=== PATIENT | male | born 1955 | race Caucasian/White ===

== ENCOUNTER 2020-08-02 16:44 | Inpatient (IN) | payer OTHER ==
[~2020-08-02] VITALS: Ht 149.9 cm; Wt 109.8 kg
[~2020-08-02 16:44] MED LIST: AMIODARONE 150 MG/3 ML VIAL ONE; AMLO-187 PO; ATOR20TA58 PO; ATROPINE 0.5 MG/5 ML DISP.SYRINGE. ONE; DEXTROSE 50% 25 GM / 50ML DISP.SYRIN. IV ONE; DOPamine 400MG/250ML PREMIX 400 MG/250 ML BAG IV ONE; EPINEPHrine SYRINGE 1 MG/10 ML SYRINGE ONE; METF100010 PO; OLME40TA12 PO; SODIUM BICARB ADULT 8.4% 50 MEQ/50 ML DISP.SYRIN. ONE
[2020-08-02 18:00] VITALS: BP 110/70
[2020-08-02] MEDS ORDERED: MINERAL OIL/PETROLATUM,WHITE OPHTH OINT 3.5GM TUBE. OU PRN (19:30)
[2020-08-02] MEDS ORDERED: AMIODARONE 450 MG in IV DEXTROSE 5% 250 ML IV ONE (19:30)
[2020-08-02] MEDS ORDERED: methylPREDNISolone SOD SUCC PF 125 MG/2 ML VIAL. IV ONE (19:30)
[2020-08-02] MEDS ORDERED: NALOXONE 0.4 MG/ML VIAL. IV PRN (19:30)
[2020-08-02] MEDS ORDERED: IV 1/2 NORMAL SALINE 1,000 ML IV SCH (19:30)
[2020-08-02] MEDS ORDERED: VECURONIUM BOLUS 10 MG VIAL. IV ONE (19:30)
--- NOTE | 2020-08-02 21:03 | RAD ---
Exam: Chest one view INDICATION: Shortness of breath TECHNIQUE: Frontal view of the chest Comparisons: 08/02/2020 FINDINGS: Enteric tube traverses below the diaphragm distal extent not visualized likely within stomach. The cardiomediastinal silhouette and pulmonary vessels are within normal limits. Hazy opacity lung bases bilaterally. No pleural effusion. IMPRESSION: 1. Enteric tube likely within the stomach. 2. Small bilateral pleural effusions. Electronically signed by: Emelina Anton MD (08/02/2020 9:00 PM) [facility]
[2020-08-02 21:06] LABS: BASO % 0 % (0-3); EOS % 0 % (0-3); HEMATOCRIT 41.5 % (39.0-53.0); HEMOGLOBIN 14.1 g/dL (13.0-17.5); LYMPH # 1.5 x10^3/uL (1.0-4.8); LYMPH % 3 % (24-48); MEAN CORPUSCULAR HEMOGLOBIN 29 pg (25-35); MEAN CORPUSCULAR HGB CONC 34 g/dL (31-37); MEAN CORPUSCULAR VOLUME 84 fL (79-100); MONO # 2.6 x10^3/uL (0.0-1.1); MONO % 6 % (0-9); NEUT # 42.7 x10^3/uL (1.8-7.7); NEUT % 91 % (31-73); PLATELET COUNT 102 x10^3/uL (140-400); RED BLOOD COUNT 4.94 x10^6/uL (4.30-5.70); RED CELL DISTRIBUTION WIDTH 14.1 % (11.5-14.5)
[2020-08-02 21:09] LABS: BASE EXCESS ABG -13 mmol/L (-3-3); HCO3 ABG 12 mmol/L (21-28); PCO2 ABG 29 mmHg (35-46); PO2 ABG 153 mmHg (65-108); SAT O2 ABG 99 % (92-99)
[2020-08-02 21:10] LABS: WHITE BLOOD COUNT 46.9 x10^3/uL (4.0-11.0)
[2020-08-02 21:29] LABS: ALBUMIN 2.2 g/dL (3.4-5.0); CREATININE 5.2 mg/dL (0.7-1.3); DIRECT BILIRUBIN 0.3 mg/dL (0.0-0.2); GFR 11.2; MAGNESIUM 1.9 mg/dL (1.8-2.4); PHOSPHORUS 6.9 mg/dL (2.6-4.7); POTASSIUM 5.7 mmol/L (3.5-5.1); TOTAL BILIRUBIN 0.7 mg/dL (0.2-1.0); TOTAL PROTEIN 5.2 g/dL (6.4-8.2)
[2020-08-02] MEDS ORDERED: LEVOTHYROXINE SODIUM INJ 100 MCG in NORMAL SALINE 5 ML IV SCH (21:30)
[2020-08-02 21:36] LABS: PROTHROMBIN TIME PATIENT 17.5 SEC (11.7-14.0)
[2020-08-02 21:44] LABS: FIO2 ABG 100
--- NOTE | 2020-08-02 21:45 | RAD ---
Examination: NM BRAIN SCAN WITH FLOW History: Confirmation of brain ; organ donor; cardiac arrest Comparison/Correlation: None Findings: 16.5 mCi technetium 99m sodium pertechnetate was intravenously administered for purposes of brain flow scintigraphy exam. Imaging was performed up to 110 seconds. There is no intracranial flow of radiotracer identified. Impression: Lack of intracranial flow of radiotracer compatible with brain in the appropriate clinical sett ing. Electronically signed by: Jose Alberto Hebert MD (08/02/2020 9:42 PM) [facility]
[2020-08-02] MEDS: NOREPINEPHRINE VIAL 8 MG in IV DEXTROSE 5% 250 ML IV PRN (21:51)
[2020-08-02] MEDS: VASOPRESSIN 20 UNIT in IV DEXTROSE 5% 100ML 100 ML IV PRN (21:54)
[2020-08-02] MEDS ORDERED: INSULIN REGULAR VIAL 100 UNIT in IV NORMAL SALINE 100ML 100 ML IV PRN (23:15)
[2020-08-02] MEDS ORDERED: SODIUM BICARB ADULT 8.4% 50 MEQ/50 ML DISP.SYRIN. ONE (23:24)
[2020-08-02] MEDS ORDERED: CALCIUM CHLORIDE 1,000 MG in IV NORMAL SALINE 100ML 100 ML IV ONE (23:30)
[2020-08-02] MEDS ORDERED: EPINEPHrine SYRINGE 1 MG/10 ML SYRINGE ONE ×2 (23:35→23:40)
[2020-08-03] MEDS: PHENYLEPHRINE INJ 50 MG in IV NORMAL SALINE 250ML 250 ML IV PRN ×3 (00:10→11:18)
[2020-08-03] MEDS ORDERED: EPINEPHrine SYRINGE 1 MG/10 ML SYRINGE ONE (00:34)
[2020-08-03] MEDS ORDERED: EPINEPHrine SYRINGE 1 MG/10 ML SYRINGE IV ONE (02:00)
[2020-08-03] MEDS ORDERED: SODIUM BICARB ADULT 8.4% 50 MEQ/50 ML DISP.SYRIN. IV ONE ×2 (02:00)
[2020-08-03] MEDS ORDERED: EPINEPHrine VIAL 5 MG in IV NORMAL SALINE 250ML 250 ML IV PRN (02:15)
[2020-08-03 02:21] LABS: BILIRUBIN,URINE SMALL (NEG); CLARITY,URINE TURBID; COLOR,URINE AMBER; NITRITE,URINE NEGATIVE (NEG); PROTEIN,URINE >=300 mg/dL (NEG-TRACE); UROBILINOGEN,URINE 0.2 mg/dL (0.2 mg/dL)
[2020-08-03 02:30] LABS: BACTERIA,URINE 0 /HPF (0-FEW)
[2020-08-03 02:31] LABS: AMORPHOUS SEDIMENT,UR PRESENT /HPF
[2020-08-03 02:32] LABS: GRANULAR CASTS,URINE FEW /HPF; HYALINE CASTS, URINE OCCASIONAL /HPF; WAXY CASTS,URINE OCCASIONAL /HPF
[2020-08-03] MEDS: NOREPINEPHRINE VIAL 8 MG in IV DEXTROSE 5% 250 ML IV PRN ×2 (02:43→08:24)
[2020-08-03 02:52] LABS: BASE EXCESS ABG 19 mmol/L (-3-3); HCO3 ABG 9 mmol/L (21-28); PCO2 ABG 31 mmHg (35-46); PO2 ABG 102 mmHg (65-108); SAT O2 ABG 96 % (92-99)
[2020-08-03 02:53] LABS: FIO2 ABG 100 (VENT)
[2020-08-03 02:54] LABS: CORRECTED PCO2 ABG 30 mmHg; CORRECTED PH ABG 7.11; CORRECTED PO2 ABG 98 mmHg
[2020-08-03 03:13] LABS: BASE EXCESS ABG -16 mmol/L (-3-3); CORRECTED PCO2 ABG 34 mmHg; CORRECTED PH ABG 7.15; CORRECTED PO2 ABG 105 mmHg; HCO3 ABG 12 mmol/L (21-28); SAT O2 ABG 97 % (92-99)
[2020-08-03 03:27] LABS: BASO # 0.1 x10^3/uL (0.0-0.2); BASO % 0 % (0-3); EOS % 0 % (0-3); HEMATOCRIT 38.5 % (39.0-53.0); HEMOGLOBIN 13.1 g/dL (13.0-17.5); LYMPH # 1.1 x10^3/uL (1.0-4.8); LYMPH % 3 % (24-48); MEAN CORPUSCULAR HEMOGLOBIN 29 pg (25-35); MEAN CORPUSCULAR HGB CONC 34 g/dL (31-37); MEAN CORPUSCULAR VOLUME 85 fL (79-100); MONO # 1.7 x10^3/uL (0.0-1.1); MONO % 4 % (0-9); NEUT # 37.4 x10^3/uL (1.8-7.7); NEUT % 93 % (31-73); PLATELET COUNT 108 x10^3/uL (140-400); RED BLOOD COUNT 4.51 x10^6/uL (4.30-5.70); RED CELL DISTRIBUTION WIDTH 13.7 % (11.5-14.5)
[2020-08-03 03:34] LABS: PROTHROMBIN TIME PATIENT 18.6 SEC (11.7-14.0); WHITE BLOOD COUNT 40.3 x10^3/uL (4.0-11.0)
[2020-08-03 03:42] LABS: FIO2 ABG 100 VENT
[2020-08-03 03:44] LABS: ALBUMIN 2.1 g/dL (3.4-5.0); CREATININE 6.1 mg/dL (0.7-1.3); DIRECT BILIRUBIN 0.3 mg/dL (0.0-0.2); GFR 9.3; MAGNESIUM 1.8 mg/dL (1.8-2.4); PHOSPHORUS 8.9 mg/dL (2.6-4.7); POTASSIUM 5.8 mmol/L (3.5-5.1); TOTAL BILIRUBIN 0.7 mg/dL (0.2-1.0); TOTAL PROTEIN 4.5 g/dL (6.4-8.2)
[2020-08-03] MEDS: PIPERACILLIN/TAZOBACTAM 3.375 GM in IV NORMAL SALINE 50ML 50 ML IV SCH ×2 (03:45→11:44)
[2020-08-03] MEDS: POTASSIUM CHLORIDE 20 MEQ in DIALYSIS SOLUTION BGK 0/2.5 5,000 ML IV SCH ×5 (03:51→08:22)
[2020-08-03] MEDS ORDERED: CALCIUM CHLORIDE 1,000 MG in IV NORMAL SALINE 100ML 100 ML IV ONE (05:30)
[2020-08-03 05:45] LABS: BASE EXCESS ABG -14 mmol/L (-3-3); CORRECTED PCO2 ABG 33 mmHg; CORRECTED PO2 ABG 104 mmHg; HCO3 ABG 13 mmol/L (21-28); PCO2 ABG 34 mmHg (35-46); PO2 ABG 107 mmHg (65-108); SAT O2 ABG 97 % (92-99)
[2020-08-03 06:31] LABS: ALBUMIN 2.1 g/dL (3.4-5.0); CALCIUM 7.9 mg/dL (8.5-10.1); CREATININE 5.6 mg/dL (0.7-1.3); DIRECT BILIRUBIN 0.3 mg/dL (0.0-0.2); GFR 10.3; MAGNESIUM 1.8 mg/dL (1.8-2.4); PHOSPHORUS 7.4 mg/dL (2.6-4.7); POTASSIUM 5.5 mmol/L (3.5-5.1); TOTAL BILIRUBIN 0.6 mg/dL (0.2-1.0); TOTAL PROTEIN 5.1 g/dL (6.4-8.2)
[2020-08-03] MEDS: VASOPRESSIN 20 UNIT in IV DEXTROSE 5% 100ML 100 ML IV PRN (08:22)
--- NOTE | 2020-08-03 08:52 | RAD ---
Procedures: Ultrasound guided right femoral non-tunneled catheter placement. Clinical Indication: Transplant donor patient with rhabdomyolysis. Hemodialysis is needed to preserve organ function The patient was prepped and draped using maximum sterile technique, including the use of: Current kj deline approved cutaneous antisepsis, a large sterile sheet to establish a sterile field. 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 If ultrasound was utilized, sterile ultrasoun d technique was followed. Ultrasound-guided access: The groin was scanned by ultrasound in the right common femoral vein is pa tent and compressible. An ultrasound image was saved and sent to PACS. Under ultrasound guidance, a single wall puncture was made into the vein. A 0.038 wire was placed followed by tract dilation to 14 -Turkmen. Under fluoroscopic guidance a 15 cm Schon temporary hemodialysis catheter was advanced with the tip in the right iliac vein. The catheter was flushed with 1000 U/cc heparin. Complication: none Contrast: none Sedation: None The patient tolerated the procedure well and there were no immediate complications and [facility] stable condition. Conclusion: Successful right common femoral vein non-tunneled temporary hemodialysis catheter placem ent with ultrasound and fluoroscopic guidance. Electronically signed by: Francis Walls MD (08/03/2020 8:50 AM) [id number]
[2020-08-03 08:58] LABS: BASE EXCESS ABG -11 mmol/L (-3-3); FIO2 ABG 100/VENT; HCO3 ABG 15 mmol/L (21-28); PCO2 ABG 35 mmHg (35-46); PO2 ABG 78 mmHg (65-108); SAT O2 ABG 95 % (92-99)
[2020-08-03] MEDS ORDERED: AMIODARONE 450 MG in IV DEXTROSE 5% 250 ML IV ONE (09:15)
[2020-08-03 09:19] LABS: BASO # 0.1 x10^3/uL (0.0-0.2); BASO % 0 % (0-3); EOS % 0 % (0-3); HEMOGLOBIN 13.4 g/dL (13.0-17.5); LYMPH % 2 % (24-48); MEAN CORPUSCULAR HEMOGLOBIN 29 pg (25-35); MEAN CORPUSCULAR HGB CONC 34 g/dL (31-37); MEAN CORPUSCULAR VOLUME 85 fL (79-100); MONO # 1.8 x10^3/uL (0.0-1.1); MONO % 4 % (0-9); NEUT # 37.8 x10^3/uL (1.8-7.7); NEUT % 93 % (31-73); PLATELET COUNT 97 x10^3/uL (140-400); RED BLOOD COUNT 4.72 x10^6/uL (4.30-5.70); RED CELL DISTRIBUTION WIDTH 13.8 % (11.5-14.5)
[2020-08-03 09:28] LABS: PROTHROMBIN TIME PATIENT 16.3 SEC (11.7-14.0)
--- NOTE | 2020-08-03 09:28 | RAD ---
XR CHEST 1V 08/03/2020 7:46 AM INDICATION: Respiratory failure COMPARISON: 08/02/2020 TECHNIQUE: Portable frontal view of the chest is provided. FINDINGS: The cardiomediastinal silhouette is similar in appearance. Endotracheal tube and nasogastric tube are in similar position. Small to moderate bilateral pleural effusions with adjacent compressive atelectasis versus infiltrate appears progressed. Mild to moderate pulmonary vascular congestion, unchanged. No suspicious osseous abnormality. IMPRESSION: Increase in small to moderate bilateral pleural effusions with adjacent compressive atelectasis versu s infiltrates. Electronically signed by: Genesis Mars MD (08/03/2020 9:26 AM) [id number]
[2020-08-03 09:36] LABS: WHITE BLOOD COUNT 40.5 x10^3/uL (4.0-11.0)
[2020-08-03 10:04] LABS: ALBUMIN 2.3 g/dL (3.4-5.0); CALCIUM 7.4 mg/dL (8.5-10.1); DIRECT BILIRUBIN 0.3 mg/dL (0.0-0.2); GFR 11.7; PHOSPHORUS 6.2 mg/dL (2.6-4.7); POTASSIUM 5.2 mmol/L (3.5-5.1); TOTAL BILIRUBIN 0.7 mg/dL (0.2-1.0); TOTAL PROTEIN 5.4 g/dL (6.4-8.2)
[2020-08-03] MEDS ORDERED: ceFAZolin SODIUM IV Push 1 GM VIAL. IVP ONE (10:15)
[2020-08-03] MEDS ORDERED: PHENYLEPHRINE in 0.9% NACL PF 1 MG/10 ML SYRINGE. IV ONE (13:17)
[2020-08-04 00:07] LABS: HEMOGLOBIN A1C 5.9 % (4.8-5.6)
== END 2020-08-03 12:10 | DRG 80 ==
LOC: 1 WEST ICU 16:44
PROC: B51F1ZA Fluoroscopy of Right Pelvic (Iliac) Veins using Low Osmolar Contrast, Guidance (ICD-10-PCS; 2020-08-03)
PROC: B54MZZA Ultrasonography of Right Upper Extremity Veins, Guidance (ICD-10-PCS; 2020-08-03)
PROC: 05HY33Z Insertion of Infusion Device into Upper Vein, Percutaneous Approach (ICD-10-PCS; principal; 2020-08-03 12:00)
DX: I46.9 Cardiac arrest, cause unspecified; J90 Pleural effusion, not elsewhere classified; M62.82 Rhabdomyolysis; Z52.9 Donor of unspecified organ or tissue
CPT/HCPCS: 36415; 36556; 36600; 71045; 76937; 78606; 80048; 80076; 81001; 82150; 82310; 82553; 82805; 82962; 82977; 83036; 83605; 83615; 83690; 83735; 84100; 84484; 85025; 85384; 85610; 85730; 86850; 86900; 86901; 87040; 87086; 87205; 94003; 96374; A9512; C1892; J0171; J0282; J0461; J0690; J1265; J1815; J2370; J2543; J3480; J3490; J7050; J7060; G0378; J7030